=== PATIENT | female | born 1980 | race Caucasian/White ===

== ENCOUNTER 2018-01-08 06:19 | Day surgery (SDC) | payer MEDICAID ==
[2018-01-04 11:58] LABS: BASOPHILS % (AUTO) 0.5 % (0.0-2.0); EOSINOPHILS # (AUTO) 0.1 K/uL (0-0.4); EOSINOPHILS % (AUTO) 1.9 % (0.0-4.0); HEMATOCRIT 37.6 % (36-48); HEMOGLOBIN 12.7 g/dL (12.0-16.0); LYMPHOCYTES # (AUTO) 2.3 K/uL (2.5-16.5); LYMPHOCYTES % (AUTO) 30.7 % (20.5-51.1); MEAN CORPUSCULAR HEMOGLOBIN 28 pg (27-31); MEAN CORPUSCULAR HGB CONC 34 g/dL (33-37); MEAN CORPUSCULAR VOLUME 82.5 fL (80-94); MONOCYTES # (AUTO) 0.6 K/uL (0.8-1.0); MONOCYTES % (AUTO) 7.4 % (1.7-9.3); NEUTROPHILS # (AUTO) 4.5 K/uL (1.8-7.7); NEUTROPHILS % (AUTO) 59.5 % (42.2-75.2); PLATELET COUNT (AUTO) 254 K/uL (140-450); RED BLOOD CELL COUNT(AUTO) 4.56 MIL/uL (4.20-5.40); WHITE BLOOD COUNT (AUTO) 7.5 K/uL (4.8-10.8)
[2018-01-04 12:20] LABS: ALBUMIN 3.8 g/dL (3.4-5.0); ANION GAP 13.4 (8-16); CREATININE 0.8 mg/dL (0.6-1.3); POTASSIUM 3.4 mmol/L (3.5-5.1); TOTAL BILIRUBIN 0.5 mg/dL (0.0-1.0)
[~2018-01-08] VITALS: Ht 154.9 cm; Wt 60.3 kg
[2018-01-08] MEDS ORDERED: CEFAZOLIN SODIUM 1 GM/D5W PM 50 ML IV SCH (07:20)
[2018-01-08] MEDS ORDERED: MIDAZOLAM 2 MG/2 ML VIAL ONE ×2 (07:28→12:00)
[2018-01-08] MEDS ORDERED: fentaNYL 0.05 MG/ML VIAL ONE ×2 (07:28→12:00)
[2018-01-08] MEDS ORDERED: MEPERIDINE 50 MG/ML SYR ONE (07:28)
[2018-01-08] MEDS ORDERED: LIDOCAINE MPF 1% - **ER/OR** 0 ML ONE (07:50)
[2018-01-08] MEDS ORDERED: ONDANSETRON 4 MG/2 ML VIAL ONE (07:55)
[2018-01-08] MEDS ORDERED: PROPOFOL 200 MG/20 ML VIAL IV ONE (07:55)
[2018-01-08] MEDS ORDERED: DEXAMETHASONE 4 MG/ML VIAL ONE (07:55)
[2018-01-08] MEDS ORDERED: SEVOFLURANE 250 ML BTL INH ONE (07:55)
[2018-01-08] MEDS ORDERED: BUPIVACAINE MPF 0.25% 10 ML VIAL INJ ONE ×2 (08:04→12:08)
[2018-01-08] MEDS ORDERED: TRIAMCINOLONE 40 MG/ML 5ML VIAL ONE (08:04)
[2018-01-08] MEDS ORDERED: ONDANSETRON 4 MG/2 ML VIAL IVP PRN (08:45)
[2018-01-08] MEDS ORDERED: HYDROmorphone 1 MG/ML AMP IVP PRN ×2 (08:45→12:50)
[2018-01-08] MEDS ORDERED: diphenhydrAMINE 50 MG/ML VIAL IVP PRN (08:45)
[2018-01-08] MEDS ORDERED: MEPERIDINE 50 MG/ML SYR IVP PRN (08:45)
[2018-01-08] MEDS ORDERED: LACTATED RINGERS 1,000 ML IV SCH (08:45)
[2018-01-08] MEDS ORDERED: NEOMYCIN/POLYMYXIN/BACITRACIN OIN 15 GM TUBE TP ONE ×2 (08:53→12:37)
[2018-01-08] MEDS ORDERED: MORPHINE SULFATE 4 MG/ML SYR IV PRN (12:50)
[2018-01-08] MEDS ORDERED: MORPHINE SULFATE 2 MG/ML SYR IVP PRN (12:50)
[2018-01-08] MEDS ORDERED: HYDROcodone/APAP 5/325 MG 1 TAB TAB PO PRN (12:50)
[2018-01-08] MEDS ORDERED: MIDAZOLAM 2 MG/2 ML VIAL IVP ONE (13:35)
== END 2018-01-08 13:41 | disposition home or self-care (01) ==
LOC: MDS 06:19 → MMU 06:21 → MDS 13:41
PROVIDERS: ATTEND Surgery
DX: L91.0 Hypertrophic scar (principal); Z98.890 Other specified postprocedural states; Z79.899 Other long term (current) drug therapy; Z90.49 Acquired absence of other specified parts of digestive tract
CPT/HCPCS: 13151; 36415; 71045; 80053; 81025; 85025; 88304; J0690; J1100; J2175; J2250; J2405; J2704; J3010; J3301; J3490; J7120; Q0092; J2001; J7060